=== PATIENT | female | born 1960 | race Caucasian/White ===

== ENCOUNTER 2025-04-11 10:52 | Outpatient (CLI) | payer BC, SELFPAY ==
--- NOTE | ~2025-04-11 | XR_ITS ---
XR cervical spine min 6V Ordering provider: Roland Burton, [place] History: . Left shoulder pain, limited ROM, radicular pain . Comparison: None. FINDINGS: VERTEBRAL BODIES: Normal height and alignment. No visible fracture or subluxation. The dens is intact . DISK SPACES: Slight narrowing of the disc C3-C4 and C5-C6. PARASPINOUS SOFT TISSUES: No prevertebral soft tissue swelling. IMPRESSION: No acute osseous abnormality cervical spine. Multilevel degenerative disc disease. Reviewed, dictated and finalized at location A.
--- NOTE | ~2025-04-11 | XR_ITS ---
EXAM/ PROCEDURE: XR shoulder LT min 2V - 04/11/2025 11:18 CDT HISTORY: 64 years old Female with Left shoulder pain, limited ROM, radicular pain COMPARISON: None available TECHNIQUE: Four view(s) FINDINGS/ IMPRESSION: There are no fractures or dislocations.Joint spaces are within normal limits. Reviewed, dictated and finalized at location A.
== END 2025-04-11 10:53 | disposition home or self-care (01) ==
LOC: GOSHIMG 10:53
PROVIDERS: PCP Chiropractor; Visit Provider Chiropractor
DX: M25.512 Pain in left shoulder (principal); M50.30 Other cervical disc degeneration, unspecified cervical region
CPT/HCPCS: 72052; 73030